=== PATIENT | female | born 1990 | race Asian ===

== ENCOUNTER 2018-03-10 17:40 | Outpatient (CLI) | payer OTHER ==
[2018-03-10 18:07] VITALS: BP 129/85
== END 2018-03-10 18:50 | disposition home or self-care (01) ==
LOC: WFO 17:40 → FBP 17:44 → WFO 18:50
PROVIDERS: ATTEND Obstetrics & Gynecology
DX: Z34.83 Encounter for supervision of other normal pregnancy, third trimester (principal)
CPT/HCPCS: 99213

== ENCOUNTER 2018-03-10 23:44 | Inpatient (IN) | payer OTHER ==
[2018-03-11] MEDS: LACTATED RINGERS 1,000 ML IV SCH ×4 (02:09→16:34)
[2018-03-11] MEDS ORDERED: LACTATED RINGERS 1,000 ML IV ONE (02:10)
[2018-03-11] MEDS ORDERED: OXYTOCIN/SODIUM CHLORIDE 500 ML IV ONE (02:11)
[2018-03-11] MEDS ORDERED: SODIUM CHLORIDE FLUSH 0.9% 10 ML SYRINGE ONE (02:11)
[2018-03-11] MEDS ORDERED: SODIUM CHLORIDE FLUSH 0.9% 10 ML SYRINGE IVP PRN (02:20)
[2018-03-11 02:36] LABS: BASOPHILS # (AUTO) 0.1 10^3/uL (0.0-0.1); BASOPHILS % (AUTO) 0.5 %; EOSINOPHILS # (AUTO) 0.2 10^3/uL (0.0-0.7); EOSINOPHILS % (AUTO) 1.5 %; HGB - HEMOGLOBIN 11.5 g/dL (12.0-16.0); LYMPHOCYTES # (AUTO) 1.8 10^3/uL (1.5-3.5); LYMPHOCYTES % (AUTO) 16.4 %; MEAN CORPUSCULAR HEMOGLOBIN 24.3 pg (27.0-31.0); MEAN CORPUSCULAR HGB CONC 32.5 g/dL (32.0-36.0); MEAN CORPUSCULAR VOLUME 74.9 fL (81.0-99.0); MEAN PLATELET VOLUME 8.9 fL (7.9-10.8); MONOCYTES # (AUTO) 0.8 10^3/uL (0.0-1.0); MONOCYTES % (AUTO) 7.2 %; NEUTROPHILS % (AUTO) 74.4 %; PLT - PLATELET COUNT 206 10^3/uL (130-450); RED BLOOD COUNT 4.72 10^6/uL (4.20-5.40); RED CELL DISTRIBUTION WIDTH 15.7 % (12.0-15.0); WHITE BLOOD COUNT 10.8 x10^3/uL (4.8-10.8)
[2018-03-11] MEDS ORDERED: LIDOCAINE 1% 50 ML MDV ONE (02:47)
--- NOTE | 2018-03-11 03:23 | HISTORY & PHYSICAL EXAMINATION ---
Chief Complaint - Chief Complaint Chief Complaint: Contractions History of Present Illness - Admitted From Admitted From:: Home to [facility] - History Obtained From Records Reviewed: YES History obtained from: PATIENT Exam Limitations: N/A - History of Present Illness HPI Comment/Other: 27 y.o. EDC 03/16/18 based on LMP and US (per patient history) patient is 39 2/7 weeks EGA. Patient is active duty beneficiary. records from [place] document 2nd trim. OB US ordered but report not found in chart. Patient admitted to [facility] in labor with cervical change from 1 cm dilation to 4 cm dilation and 90 percent effacement. PNC notable only for well controlled A1DM. OB Hx notable for 3 prior vaginal deliveries at term ranging from 3,459-3,685 GMS. BOWI on admission with category 1 tracing, GBS negative. Rubella status unknown. History - Past Medical History Cardiovascular: reports: None Respiratory: reports: None Neuro: reports: None Endocrine/Autoimmune: reports: Other GI: reports: None COSMETICS SUPERVISOR: reports: None : reports: None HEENT: reports: None Psych: reports: None Musculoskeletal: reports: None Derm: reports: None MRSA Hx?: No Other Past Medical History: None - Past Surgical History Other past surgical history: None - Family & Social History Living arrangement: At home Living Situation: With family Social History Notes: Spouse on active duty in [facility] - Substance History Use: Uses substance without health or social issues: NONE Abuse: Recurrent use of substance despite neg consequences: NONE Dependence: Experiences withdrawal or developed tolerances: NONE - POLST POLST Status: Full Code Meds/Allgy - Allergies Allergies/Adverse Reactions: Allergies Allergy/AdvReac Type Severity Reaction Status Date / Time No Known Drug Allergies Allergy Verified 03/11/18 03:36 Review of Systems - All Other Systems All Other Systems: reports: Reviewed and negative - Other Findings Other Findings: ROS ALL NEGATIVE EXCEPT FOR LABOR CONTRACTIONS. NEGATIVE FOR: HEENT CV RESP GI/ MS/NM SKIN Exam - Vital Signs Reviewed Vital Signs: Yes Vital Signs: Vital Signs x48h Temp Pulse Resp BP Pulse Ox 03/11/18 01:47 36.7 C 100 16 126/72 99 03/10/18 23:56 36.7 C 96 18 127/76 97 - Physical Exam General Appearance: positive: No acute distress, Alert Eyes Bilateral: positive: Normal inspection Neck: positive: Nml inspection Respiratory: positive: Breath sounds nml Cardiovascular: positive: Regular rate & rhythm Peripheral Pulses: positive: 2+ Abdomen: positive: Non-tender Back: positive: Nml inspection Skin: positive: Color nml Extremities: positive: Non-tender, Full ROM, Nml appearance, No pedal edema Neurologic/Psychiatric: positive: Oriented x3, Motor nml, Sensation nml, Mood/ affect nml Comments/Other: CERVIX ON ADMISSION: 4/90/+1, VTX WITH BOWI Conclusion/Plan - Lab Results Fish Bones: 03/11/18 02:10 Other Lab Results: RECORDS FROM [facility]: (09/09/17): GC/CT NEG X 2 HCT 39.4 MBT O POS PNAS NEG HIV NR VARICELLA IMMUNE HBSAG NEG HCV NEG HAV NEG RPR NR HPV 16/18 BOTH NEG HPV OTHER (POS) (10/07/17): TETRA SCREEN: T18 NOT INCREASED RISK VERIFIED. APEARS ENTIRE TETRA SCREEN NEGATIVE, BUT FINAL REPORT NOT AVAILABLE. PATIENT STATES TOLD ALL HER LABS EXCEPT FOR GDM TESTING WERE NORMAL. (12/09/17): UA NEG HGB 11.5 PLT 218 1 HR GLUCOLA 178 MBT O POS PNAS NEG UC NEGATIVE (02/07/18): 3 HR GTT: 80/209/157/151 (02/16/18): GBS NEG - Other Other Results/Comments: Impression/Plan: # 27 y.o. 39 2/7 weeks in active labor, admitted at 4 cm dilation # GBS Negative, Rh+, Rubella status unknown # GDM A1 # Admit for delivery # Routine orders. Core Measures - Anticipated LOS I expect patient to be DC'd or transferred within 96 hours.: Yes - Issues Hospital Issues and Management Plan: 27 YO 39 2/7 WEEKS IN ACTIVE LABOR, ANTICIPATE . - DVT/VTE - Prophylaxis VTE/DVT Prophylaxis med ordered at admit?: No
[2018-03-11] MEDS ORDERED: OXYTOCIN/SODIUM CHLORIDE 250 ML IV ONE ×2 (05:59→06:11)
[2018-03-11] MEDS ORDERED: TETANUS/DIPHTHERIA/PERTUSSIS 0.5 ML SYRINGE IM ONE (05:59)
[2018-03-11] MEDS ORDERED: MAGNESIUM HYDROXIDE 2,400 MG/30 ML UDC PO PRN (05:59)
[2018-03-11] MEDS ORDERED: MEASLES,MUMPS & RUBELLA VACC 0.5 ML VIAL SUBQ ONE (05:59)
[2018-03-11] MEDS ORDERED: WITCH HAZEL/GLYCERIN 1 EACH MED..PAD TOP PRN (05:59)
[2018-03-11] MEDS ORDERED: METHYLERGONOVINE 0.2 MG/ML AMP IM PRN (06:11)
--- NOTE | 2018-03-11 06:18 | PROVIDER PROGRESS NOTE ---
Subjective - Prog Note Date Prog Note Date: 03/11/18 (DELIVERY NOTE) Prog Note Time: 06:13 - Subjective Subjective: DELIVERY NOTE: Patient progressed in spontaneous labor to 8/C/+1. Underwent AROM clear at 0455. Subsequently went to C/C/+1 at 0510. Delivered uncomplicated at 0535 a viable male infant with 8/9, with loose nuchal cord, over intact perineum. Baby placed on mother's abdomen. Cord clamped and cut after 1 minute score obtained. Placenta delivered spontaneously and intact at 0540. No cervical or vaginal lacs noted on exam. Sponge and instrument count correct. EBL 300 ml. See orders. Objective - Vital Signs/Intake & Output Vital Signs: Vital Signs x48h Temp Pulse Resp BP Pulse Ox 03/11/18 05:54 75 16 121/70 100 03/11/18 05:45 36.5 C 82 16 125/66 100 03/11/18 01:47 36.7 C 100 16 126/72 99 03/10/18 23:56 36.7 C 96 18 127/76 97 Intake & Output: Intake & Output 03/08/18 03/09/18 03/10/18 03/11/18 23:59 23:59 23:59 23:59 Intake Total 1000 Balance 1000 - Lab Results Fish Bones: 03/11/18 02:10 Other Labs: Lab Results x24hrs 03/11/18 03/11/18 Range/Units 03:40 02:10 WBC 10.8 (4.8-10.8) x10^3/uL RBC 4.72 (4.20-5.40) 10^6/uL Hgb 11.5 L (12.0-16.0) g/dL Hct 35.4 L (37.0-47.0) % MCV 74.9 L (81.0-99.0) fL MCH 24.3 L (27.0-31.0) pg MCHC 32.5 (32.0-36.0) g/dL RDW 15.7 H (12.0-15.0) % Plt Count 206 (130-450) 10^3/uL MPV 8.9 (7.9-10.8) fL Neut # (Auto) 8.0 H (1.5-6.6) 10^3/uL Lymph # (Auto) 1.8 (1.5-3.5) 10^3/uL Falls # (Auto) 0.8 (0.0-1.0) 10^3/uL Eos # (Auto) 0.2 (0.0-0.7) 10^3/uL Baso # (Auto) 0.1 (0.0-0.1) 10^3/uL Absolute Nucleated RBC 0.01 x10^3/uL Nucleated RBC % 0.1 /100WBC POC Whole Bld Glucose 106 H (70 - 100) mg/dL
[2018-03-11] MEDS: IBUPROFEN 800 MG TABLET PO SCH ×3 (08:25→22:18)
[2018-03-11] MEDS: DOCUSATE SODIUM 100 MG CAPSULE PO SCH ×2 (08:25→22:19)
[2018-03-11] MEDS ORDERED: SODIUM CHLORIDE FLUSH 0.9% 10 ML SYRINGE IVP SCH (09:00)
[2018-03-11] MEDS: SIMETHICONE CHEW 80 MG TABLET PO SCH ×3 (09:49→22:18)
[2018-03-11] MEDS: ACETAMINOPHEN 325 MG TABLET PO PRN (22:18)
[2018-03-12] MEDS: ACETAMINOPHEN 325 MG TABLET PO PRN (04:35)
[2018-03-12] MEDS: IBUPROFEN 800 MG TABLET PO SCH ×2 (04:36→14:05)
[2018-03-12] MEDS: LACTATED RINGERS 1,000 ML IV SCH (05:45)
[2018-03-12] MEDS: SIMETHICONE CHEW 80 MG TABLET PO SCH ×2 (05:53→14:05)
[2018-03-12 06:29] LABS: BASOPHILS % (AUTO) 0.5 %; EOSINOPHILS # (AUTO) 0.2 10^3/uL (0.0-0.7); EOSINOPHILS % (AUTO) 1.6 %; HGB - HEMOGLOBIN 10.2 g/dL (12.0-16.0); LYMPHOCYTES % (AUTO) 19.5 %; MEAN CORPUSCULAR HEMOGLOBIN 24.4 pg (27.0-31.0); MEAN CORPUSCULAR HGB CONC 31.8 g/dL (32.0-36.0); MEAN CORPUSCULAR VOLUME 76.8 fL (81.0-99.0); MEAN PLATELET VOLUME 8.1 fL (7.9-10.8); MONOCYTES # (AUTO) 0.5 10^3/uL (0.0-1.0); MONOCYTES % (AUTO) 5.2 %; NEUTROPHILS # (AUTO) 7.5 10^3/uL (1.5-6.6); NEUTROPHILS % (AUTO) 73.2 %; PLT - PLATELET COUNT 201 10^3/uL (130-450); RED CELL DISTRIBUTION WIDTH 15.9 % (12.0-15.0); WHITE BLOOD COUNT 10.2 x10^3/uL (4.8-10.8)
[2018-03-12] MEDS: DOCUSATE SODIUM 100 MG CAPSULE PO SCH (10:25)
[2018-03-12 12:00] VITALS: BP 112/64
--- NOTE | 2018-03-12 12:00 | Discharge Plan ---
Discharge Plan Disposition: 01 Home, Self Care Condition: Good Diet: Regular Activity Restrictions: Activity as Tolerated Shower Restrictions: No Weight Bearing: Full Weight No Smoking: If you smoke, Please STOP! Call for help. Follow-up with: Bob Waller MD [Provider Admit Priv/Credential] -
--- NOTE | 2018-03-12 12:10 | DISCHARGE SUMMARY ---
"Discharge Summary Admit Date: 03/10/18 Discharge Date: 03/12/18 Discharging Provider: QI Code Status: Attempt Resuscitation Condition at Discharge: Good Discharge Disposition: 01 Home, Self Care - DIAGNOSES Admission Diagnoses: LABOR Discharge Diagnoses with Status of Each Condition: LABOR, STATUS GOOD/UNCOMPLICATED - HPI History of Present Illness: 27 YO [place] dependant 39 2/7 weeks admitted in labor, well controlled A1DM. - CONSULTS | PROCEDURES Consultations: NONE - HOSPITAL COURSE Hospital Course: Patient progressed through labor without complication, delivered on 03/11/18 at 0535 hours viable male with 8/9, WT 7# 0 onz. Uncomplicated course. Discharge home on ppd #1. - ALLERGIES Allergies/Adverse Reactions: Allergies Allergy/AdvReac Type Severity Reaction Status Date / Time No Known Drug Allergies Allergy Verified 03/11/18 03:36 - MEDICATIONS Home Medications Other | Comments: Motrin 800 mg #30: 1 p.o. q8h wf prn pain. - PHYSICAL EXAM AT DISCHARGE General Appearance: positive: No acute distress, Alert Eyes Bilateral: positive: Normal inspection ENT: positive: ENT inspection nml Neck: positive: Nml inspection Abdomen: positive: Non-tender Back: positive: Nml inspection Skin: positive: Color nml Physical Exam Other/Comments: Ux firm U-6 cm - LABS Result Diagrams: 03/12/18 06:21 - FOLLOW UP Follow Up: F/U in [facility] women[facility] clinic 6 weeks . - TIME SPENT Time Spent in Discharge (Minutes): 30"
--- NOTE | 2018-03-12 14:07 | Labor Flowsheet ---
Labor Flowsheet Datetime Report Generated by CPN: 03/12/2018 14:07 Datetime: 03/11/2018 19:16 VITAL SIGNS NBP Sys/Josephine/Mean (mmHg): 127 : 61 : 77 Pulse: 90 COMMUNICATION LaborFlag: Labor Datetime: 03/11/2018 07:29 SpO2 (%): 100 Datetime: 03/11/2018 05:30 UTERINE ACTIVITY Monitor Mode: External Frequency (min): 1.5 Quality: Strong Duration (sec): 40-60 Pattern: Tachysystole: > 5 Contractions in 10 Minutes Resting Tone (Palpate): Relaxed ASSESSMENT A Monitor Mode: External US Variability: Moderate 6-25 bpm Accelerations: None Decelerations: Late; Variable Actions for Decelerations: Oxygen Applied Category: Category II Comments: indeterminate baseline. Datetime: 03/11/2018 05:15 FHR Baseline Rate : 130 Datetime: 03/11/2018 05:04 Stage of : Labor Respirations: 20 Datetime: 03/11/2018 04:35 Temperature (C): 36.5 Temperature Route: Oral Datetime: 03/11/2018 03:56 PAIN Pain Scale: 9 Pain Presence: Intermittent Pain Type: Contraction
== END 2018-03-12 13:50 | disposition home or self-care (01) | DRG 775 ==
LOC: WFO 23:44 → FBP 23:46 → WFO 03-11 01:59 → FBP 03-11 02:00 → OBS 03-11 20:11 → UNDODISIN 03-12 13:50
PROVIDERS: ADMIT Obstetrics & Gynecology; ATTEND Obstetrics & Gynecology
PROC: 10E0XZZ Delivery of Products of Conception, External Approach (ICD-10-PCS; principal; 2018-03-11)
PROC: 10907ZC Drainage of Amniotic Fluid, Therapeutic from Products of Conception, Via Natural or Artificial Opening (ICD-10-PCS; 2018-03-11)
DX: O24.429 Gestational diabetes mellitus in childbirth, unspecified control (principal); O69.81X0 Labor and delivery complicated by cord around neck, without compression, not applicable or unspecified; Z37.0 Single live birth; Z3A.39 39 weeks gestation of pregnancy
CPT/HCPCS: 36415; 85025; 86762; 86780; 99212